=== PATIENT | male | born 1940 | race Caucasian/White ===

== ENCOUNTER 2017-01-11 12:42 | Emergency (ER) | payer OTHER ==
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
[2017-01-11 14:22] VITALS: BP 148/94; PULSE 60; RESP 20; TEMP 97.7; O2SAT 97
== END 2017-01-11 14:22 | disposition home or self-care (01) ==
DX: S06.0X0A Concussion without loss of consciousness, initial encounter (principal); I10 Essential (primary) hypertension; Z87.891 Personal history of nicotine dependence; W01.198A Fall on same level from slipping, tripping and stumbling with subsequent striking against other object, initial encounter; Y93.89 Activity, other specified